=== PATIENT | male | born 1945 | race American Indian/Alaskan Native ===

== ENCOUNTER 2021-04-07 15:32 | Observation (INO) | payer MEDICARE ==
--- NOTE | 2021-04-07 10:04 | Anesthesia Consultation ---
<ELMER PYLE - Last Filed: 04/07/21 10:02> Anesthesia Consult and Med Hx Date of service: 04/07/21 - Airway Anesthetic Teeth Evaluation: Poor, Dentures ROM Head & Neck: Inadequate Mental/Hyoid Distance: Adequate Mallampati Class: Class III Intubation Access Assessment: Possibly Difficult - Pulmonary Exam CTA: Yes - Cardiac Exam Cardiac Exam: RRR - Pre-Operative Health Status ASA Pre-Surgery Classification: ASA3, ASA4 Proposed Anesthetic Plan: General - Pulmonary Hx Smoking: No Hx Sleep Apnea: No (JYOTI PRE SCREEN HIGH RISK) - Cardiovascular System Hx Hypertension: Yes - Central Nervous System Hx Back Pain: Yes (AND NECK PAIN CERVICALGIA) - Endocrine Hx End Stage Renal Disease: Yes Hx Insulin Dependent Diabetes: Yes Hx Thyroid Disease: No - Hematic Hx Anemia: No - Other Systems Hx Obesity: Yes (MORBID) - Additional Comments Anesthesia Medical History Comments: No GAC. No FHAC <AIME STUART - Last Filed: 04/07/21 12:29> Anesthesia Consult and Med Hx - Pre-Operative Health Status ASA Pre-Surgery Classification: ASA3
--- NOTE | 2021-04-07 10:04 | Anesthesia Day of Surgery ---
Anesthesia Day of Surgery - Day of Surgery Patient Examined: Yes Patient H&P Reviewed: Yes Patient is NPO: Yes Beta Blockers: No Cardiac Clearance: No Pulmonary Clearance: No Patrick's Test: N/A
[2021-04-07 10:47] LABS: Hematocrit 44.7 % (35.5-45.6); Hemoglobin 14.1 gm/dl (11.8-15.2); Mean Corpuscular HGB Conc 32 % (32-34); Mean Corpuscular Volume 84 fl (84-94); Platelet Count 156 K/mm3 (140-440); Red Blood Count 5.33 M/mm3 (3.65-5.03); Red Cell Distribution Width 15.4 % (13.2-15.2)
[2021-04-07 11:49] LABS: BUN/Creatinine Ratio 17; Blood Urea Nitrogen 20 mg/dL (9-20); Calcium 9.1 mg/dL (8.4-10.2); Hemolysis Index 5
--- NOTE | 2021-04-07 14:24 | Post Operative Note ---
Date of procedure: 04/07/21 Pre-op diagnosis: inc psa irreg prostate Post-op diagnosis: other Findings: necrotic bleeding tumor Procedure: cysto tur bt biopdies fulg Anesthesia: GETA Surgeon: KEVIN JAMA Estimated blood loss: minimal Pathology: list (prostate bladder neck) Specimen disposition: to lab Condition: stable
--- NOTE | 2021-04-07 14:58 | Fluoroscopy Report ---
FLUOROSCOPY CYSTOGRAM STATIC HISTORY: Elevated PSA and hematuria FINDINGS: 4 seconds of fluoroscopy time was provided by radiology during cystogram by urology. 3 fluo roscopic images are presented demonstrating moderate distention of the bladder with contrast agent. A Zuñiga catheter is in place. There is suggestion of a prominent prostate intervention at the bladder base. There is no evidence for extravasation or vesicoureteral reflux. Please correlate with the proc edural report as needed. Signer Name: Srinivasa Fortune Jr, MD Signed: 04/07/2021 2:54 PM Workstation Name: [id number]
--- NOTE | 2021-04-07 15:14 | Operative Report ---
DATE OF SURGERY: 04/07/2021 PREOPERATIVE DIAGNOSES: Increased prostate-specific antigen, history of previous transurethral resection of the prostate and stones. POSTOPERATIVE DIAGNOSES: Necrotic tissue throughout the prostatic urethra, left side bladder neck, looks like a mass with necrosis and bleeding and very large prostate. PROCEDURES: Cystoscopy, transurethral resection of necrotic tissue and bleeding sites and transrectal biopsies of prostate. SURGEON: Jay Munguia M.D. ANESTHESIA: General. FINDINGS: This is a gentleman with a significant mental handicap, who could not give a history. Apparently, there was an elevated PSA. He has had previous stone disease and resection of prostate about 12 years ago. He now presents for evaluation, cannot give a good history. DESCRIPTION OF PROCEDURE: The patient was brought to the operating room and placed on the operating table. Following induction of anesthesia, placed in lithotomy position, prepped and draped in usual sterile fashion. A PSA was repeated before we did any manipulation. Flexible cystoscopy showed necrosis with very irregular nodularity at the left side of the prostate extending into the bladder. Some of the tissue could be scraped as if there was a papillary necrotic bladder cancer. It was sent to pathology. It was constantly oozing. We did not plan for this, but part of it was resected and try to get control of some of the oozing. There were old clots in the bladder as well. The ultrasound was placed. We did random biopsies as well. The patient tolerated the procedure well. A 22, 3-way was placed. This patient will need further treatment. You could see on the cystogram, there is a tumor or growth of prostate extending to the left bladder neck and left side of the bladder. We will need followup radiographic studies. He is handicapped, keep a Medina drip, hopefully we will not have to rescope him and do more resection, but this look like a very necrotic irregular aggressive lesion. He was brought to recovery room in stable condition. TID: [id number] RECEIPT: [id number] MORIAH/MAYDA
[~2021-04-07 15:32] MED LIST: ACETAMINOPHEN 325 MG TAB PO PRN; DEXTROSE 50% IN WATER (25GM) 50 ML SYRINGE IV ONE; GENTAMICIN 160 MG in SODIUM CHLORIDE 0.9% 100 ML IV SCH; LACTATED RINGERS 1,000 ML IV SCH; LIDOCAINE PF 100 MG/5 ML (CARDIAC SYRINGE) IV ONE; MANNITOL/SORBITOL SOLUTION 3,000 ML IRRIG.SOLN IR ONE; ONDANSETRON 4 MG/2 ML INJ IV PRN; SODIUM CHLORIDE 0.9% IRR 1,000 ML BOTTLE IR PRN; SODIUM CHLORIDE 0.9% IRRIG SOLN 2000 ML IR ONE; WATER FOR IRRIG STERILE 1,000 ML BOTTLE ONE; WATER FOR IRRIG STERILE 2000 ML IR ONE; ZOLPIDEM 5 MG TAB PO PRN; ePHEDrine SULFATE 50 MG/1 ML INJ ONE; fentaNYL 100 MCG/2 ML INJ ONE; propofoL 200 MG/20 ML VIAL IV ONE
--- NOTE | 2021-04-07 16:03 | Post Anesthesia Evaluation ---
- Post Anesthesia Evaluation Patient Participated: Yes Airway Patent: Yes Stable Respiratory Function: Yes Nausea/Vomiting: No Temp > 96.8F: Yes Pain Manageable: Yes Adequeate Hydration: Yes Anesthesia Complications: No
[2021-04-07] MEDS ORDERED: HYDROmorphone 1 MG/1 ML INJ ONE (16:29)
[2021-04-07] MEDS: HYDROmorphone 1 MG/1 ML INJ IV PRN ×2 (16:35→16:55)
[2021-04-07 17:10] LABS: Basophils % (Auto) 0.3 % (0.0-1.8); Eosinophils % (Auto) 0.8 % (0.0-4.3); Hematocrit 43.4 % (35.5-45.6); Hemoglobin 13.9 gm/dl (11.8-15.2); Lymphocytes # (Auto) 0.9 K/mm3 (1.2-5.4); Lymphocytes % (Auto) 23.7 % (13.4-35.0); Mean Corpuscular HGB Conc 32 % (32-34); Mean Corpuscular Volume 84 fl (84-94); Monocytes # (Auto) 0.3 K/mm3 (0.0-0.8); Monocytes % (Auto) 9.2 % (0.0-7.3); Platelet Count 133 K/mm3 (140-440); Red Blood Count 5.16 M/mm3 (3.65-5.03); Red Cell Distribution Width 15.7 % (13.2-15.2)
[2021-04-07 17:18] LABS: BUN/Creatinine Ratio 15; Blood Urea Nitrogen 18 mg/dL (9-20); Hemolysis Index 20
--- NOTE | 2021-04-07 18:18 | Ultrasound Report ---
ULTRASOUND PROSTATE INDICATION / CLINICAL INFORMATION: ELEVATED PSA. TECHNIQUE: Endorectal scanning was performed. COMPARISON: None available. FINDINGS: Ultrasound guidance performed for biopsy by the referring physician. PROSTATE: No significant abnormality. PROSTATE SIZE: 7.6 x 5.7 x 6.1 cm. PROSTATE VOLUME: 138.5 ml. ADDITIONAL FINDINGS: None. IMPRESSION: 1. Enlarged prostate. Signer Name: Jaylen Gar MD Signed: 04/07/2021 6:13 PM Workstation Name: [id number]
[2021-04-07] MEDS: GENTAMICIN/NS 80 MG/100 ML 100 ML IV SCH (21:17)
[2021-04-07] MEDS: DOCUSATE SODIUM 100 MG CAP PO SCH (21:18)
[2021-04-08] MEDS: oxyCODONE /ACETAMINOPHEN 5-325MG TAB PO PRN (00:15)
[2021-04-08] MEDS: GENTAMICIN/NS 80 MG/100 ML 100 ML IV SCH ×2 (04:41→21:44)
--- NOTE | 2021-04-08 08:16 | Consultation ---
History of Present Illness - Reason for Consult Consult date: 04/07/21 Medical management Requesting physician: KEVIN JAMA - History of Present Illness 75-year-old with multiple medical problems including BPH, insulin-dependent diabetes, vitamin D deficiency, hyperlipidemia, hypertension and gout had surgery today for prostate biopsies and urinary bladder tumor evaluation and biopsies. Patient has nocturia postop. Otherwise been doing well. Patient has history of diabetes and is on Lantus. Past History Past Medical History: diabetes (IDDM), hypertension, hyperlipidemia (Noncontributory respiratory mild cough history), other ( vitamin D deficiency, BPH, gout) Past Surgical History: Other (Bladder and prostate surgery) Social history: lives with family, full code Family history: hypertension Medications and Allergies Allergies Allergy/AdvReac Type Severity Reaction Status Date / Time Penicillins AdvReac Unknown Unknown Verified 03/26/21 15:29 Home Medications Medication Instructions Recorded Confirmed Last Taken Type AtorvaSTATin [Lipitor] 10 mg PO QHS 03/26/21 04/07/21 04/06/21 19:00 History Cholecalciferol (Vitamin D3) 2,000 unit PO QDAY 03/26/21 04/07/21 04/06/21 09:00 History [Vitamin D3 2,000 UNIT CAP] Colchicine [Colcrys] 0.6 mg PO DAILY 03/26/21 04/07/21 04/06/21 09:00 [address] [facility] Senna Plus Tablet 2 tab PO HS 03/26/21 04/07/21 04/06/21 19:00 History Docusate Sodium [Colace CAP] 1 cap PO DAILY 03/26/21 04/07/21 04/06/21 09:00 History Finasteride 5 mg PO DAILY 03/26/21 04/07/21 04/06/21 09:00 History Insulin Glargine [Lantus VIAL] 20 units SQ HS 03/26/21 04/07/21 04/06/21 19:00 History Insulin Lispro [Humalog 100 0 units SQ BID 03/26/21 03/26/21 Unknown History UNITS/ML Kwikpen] Tamsulosin 0.8 mg PO HS 03/26/21 04/07/21 04/06/21 19:00 History Tylenol Extra Strength 500 mg PO TID 03/26/21 04/07/21 04/06/21 19:00 History amLODIPine [Norvasc] 10 mg PO DAILY 03/26/21 04/07/21 04/07/21 08:00 History Active Meds: Active Medications Acetaminophen (Acetaminophen 325 Mg Tab) 650 mg PO Q4H PRN PRN Reason: Pain MILD(1-3)/Fever >100.5/TELLEZ Amlodipine Besylate (Amlodipine 10 Mg Tab) 10 mg PO DAILY [facility] Atorvastatin Calcium (Atorvastatin 10 Mg Tab) 10 mg PO QHS [facility] Colchicine (Colchicine 0.6 Mg Tab) 0.6 mg PO DAILY [facility] Docusate Sodium (Docusate Sodium 100 Mg Cap) 100 mg PO BID [facility] Last Admin: 04/07/21 21:18 Dose: 100 mg Documented by: Docusate Sodium (Docusate Sodium 100 Mg Cap) mg PO DAILY [facility] Finasteride (Finasteride 5 Mg Tab) 5 mg PO DAILY [facility] Gentamicin Sulfate/Sodium Chloride (Gentamicin/Ns 80 Mg/100 Ml) 100 mls @ 200 mls/hr IV Q8H [facility]; Protocol Stop: 04/08/21 08:29 Last Admin: 04/08/21 04:41 Dose: 200 mls/hr Documented by: Insulin Glargine (Insulin Glargine 100 Units/Ml) 20 units SUB-Q HS [facility] Insulin Human Lispro (Insulin Lispro 100 Unit/Ml) 0 unit SUB-Q ACHS [facility]; Protocol Miscellaneous Medication (Cholecalciferol (Vitamin D3) [Vitamin D3 2,000 Unit Cap]) 2,000 unit PO QDAY [facility] Miscellaneous Medication (Tamsulosin) 0.8 mg PO HS [facility] Ondansetron HCl (Ondansetron 4 Mg/2 Ml Inj) 4 mg IV Q8H PRN PRN Reason: Nausea And Vomiting Oxycodone/Acetaminophen (Oxycodone /Acetaminophen 5-325mg Tab) 2 tab PO Q6H PRN PRN Reason: Pain, Moderate (4-6) Last Admin: 04/08/21 00:15 Dose: 2 tab Documented by: Sodium Chloride (Sodium Chloride 0.9% Irr 1,000 Ml Bottle) 30 ml IR Q2H PRN PRN Reason: Wound Care Sodium Chloride (Sodium Chloride 0.9% Irrig Soln 2000 Ml) 2,000 ml IR DIRECT [facility] Zolpidem Tartrate (Zolpidem 5 Mg Tab) 5 mg PO QHS PRN PRN Reason: Sleep Review of Systems All systems: negative Exam - Constitutional Vitals: Temp Pulse Resp BP Pulse Ox 98.4 F 80 16 129/63 98 04/08/21 07:19 04/08/21 07:19 04/08/21 07:19 04/08/21 07:19 04/08/21 07:19 General appearance: Present: no acute distress, well-nourished - EENT Eyes: Present: PERRL ENT: hearing intact, clear oral mucosa - Neck Neck: Present: supple, normal ROM - Respiratory Respiratory effort: normal Respiratory: bilateral: CTA - Cardiovascular Heart rate: 78 Rhythm: regular Heart Sounds: Present: S1 & S2. Absent: rub, click - Extremities Extremities: pulses symmetrical, No edema Peripheral Pulses: within normal limits - Abdominal General gastrointestinal: Present: soft, non-tender, non-distended, normal bowel sounds Male genitourinary: Present: normal - Integumentary Integumentary: Present: clear, warm, dry - Musculoskeletal Musculoskeletal: gait normal, strength equal bilaterally - Psychiatric Psychiatric: appropriate mood/affect, intact judgment & insight - Neurologic Neurologic: CNII-XII intact, moves all extremities Results - Labs CBC & Chem 7: 04/07/21 16:28 04/07/21 16:28 Labs: Abnormal lab results 04/07/21 04/07/21 04/07/21 Range/Units 10:20 10:30 16:28 WBC 3.9 L 3.6 L (4.5-11.0) K/mm3 RBC 5.33 H 5.16 H (3.65-5.03) M/mm3 MCH 27 L 27 L (28-32) pg RDW 15.4 H 15.7 H (13.2-15.2) % Plt Count 133 L (140-440) K/mm3 Hughes % (Auto) 9.2 H (0.0-7.3) % Lymph # (Auto) 0.9 L (1.2-5.4) K/mm3 Glucose (75-100) mg/dL Prostate Specific Ag 174.60 H (0.00-4.00) ng/mL 04/07/21 Range/Units 16:28 WBC (4.5-11.0) K/mm3 RBC (3.65-5.03) M/mm3 MCH (28-32) pg RDW (13.2-15.2) % Plt Count (140-440) K/mm3 Hughes % (Auto) (0.0-7.3) % Lymph # (Auto) (1.2-5.4) K/mm3 Glucose 101 H (75-100) mg/dL Prostate Specific Ag (0.00-4.00) ng/mL Short CBC 04/07/21 04/07/21 Range/Units 10:20 16:28 WBC 3.9 L 3.6 L (4.5-11.0) K/mm3 Hgb 14.1 13.9 (11.8-15.2) gm/dl Hct 44.7 43.4 (35.5-45.6) % Plt Count 156 133 L (140-440) K/mm3 BMP 04/07/21 04/07/21 10:20 16:28 Sodium 138 139 Potassium 4.1 3.9 Chloride 102.5 102.5 Carbon Dioxide 27 26 BUN 20 18 Creatinine 1.2 1.2 Glucose 79 101 H Calcium 9.1 9.0 Cystogram Prominent prostate intervention at the bladder base. There is no evidence for extravasation or vesicoureteral reflux. Transrectal US Enlarged prostate Assessment and Plan - Patient Problems (1) Status post surgery Current Visit: Yes Status: Acute Plan to address problem: Involving prostate and urinary bladder Postop doing well (2) IDDM (insulin dependent diabetes mellitus) Current Visit: Yes Status: Chronic Plan to address problem: Continue Lantus Accu-Cheks and coverage (3) BPH (benign prostatic hyperplasia) Current Visit: Yes Status: Chronic Qualifiers: Lower urinary tract symptom presence: symptoms present Plan to address problem: Continue Flomax and Proscar (4) Vitamin D deficiency Current Visit: Yes Status: Acute Plan to address problem: Continue vitamin D (5) Hyperlipidemia Current Visit: Yes Status: Chronic Plan to address problem: Continue statins (6) Hypertension Current Visit: Yes Status: Chronic Qualifiers: Hypertension type: primary hypertension Qualified Code(s): I10 - Essential (primary) hypertension Plan to address problem: Continue antihypertensives (7) DVT prophylaxis Current Visit: Yes Status: Acute Plan to address problem: On SCDs and GI prophylaxis
[2021-04-08] MEDS: DOCUSATE SODIUM 100 MG CAP PO SCH ×2 (09:17→21:57)
[2021-04-08] MEDS: amLODIPine 10 MG TAB PO SCH ×2 (09:17→09:18)
[2021-04-08] MEDS: CHOLECALCIFEROL (VIT D3) 1000 UNIT (25 mcg) TAB PO SCH (09:18)
--- NOTE | 2021-04-08 09:56 | Progress Note ---
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 Subjective Date of service: 04/08/21 Principal diagnosis: heme Objective - Constitutional Vitals: Vital Signs - 12hr 04/08/21 04/08/21 04/08/21 00:31 04:51 07:19 Temperature 98.0 F 98.3 F 98.4 F Pulse Rate 75 80 80 Respiratory 18 18 16 Rate Blood Pressure 127/67 116/58 129/63 O2 Sat by Pulse 97 97 98 Oximetry 04/08/21 09:18 Temperature Pulse Rate 80 Respiratory Rate Blood Pressure 129/63 O2 Sat by Pulse Oximetry General appearance: Present: no acute distress - Neck Neck: supple - Respiratory Respiratory effort: normal Extremities: no ischemia - Gastrointestinal General gastrointestinal: Present: soft, non-tender - Labs CBC & Chem 7: 04/07/21 16:28 04/07/21 16:28 Labs: Abnormal lab results 04/07/21 04/07/21 04/07/21 Range/Units 10:20 10:30 16:28 WBC 3.9 L 3.6 L (4.5-11.0) K/mm3 RBC 5.33 H 5.16 H (3.65-5.03) M/mm3 MCH 27 L 27 L (28-32) pg RDW 15.4 H 15.7 H (13.2-15.2) % Plt Count 133 L (140-440) K/mm3 Bee % (Auto) 9.2 H (0.0-7.3) % Lymph # (Auto) 0.9 L (1.2-5.4) K/mm3 Glucose (75-100) mg/dL Prostate Specific Ag 174.60 H (0.00-4.00) ng/mL 04/07/21 Range/Units 16:28 WBC (4.5-11.0) K/mm3 RBC (3.65-5.03) M/mm3 MCH (28-32) pg RDW (13.2-15.2) % Plt Count (140-440) K/mm3 Bee % (Auto) (0.0-7.3) % Lymph # (Auto) (1.2-5.4) K/mm3 Glucose 101 H (75-100) mg/dL Prostate Specific Ag (0.00-4.00) ng/mL Medications & Allergies - Medications Allergies/Adverse Reactions: Allergies Penicillins Adverse Reaction (Unknown, Verified 03/26/21 15:29) Unknown Home Medications: Home Medications Medication Instructions Recorded Confirmed Last Taken Type AtorvaSTATin [Lipitor] 10 mg PO QHS 03/26/21 04/07/21 04/06/21 19:00 History Cholecalciferol (Vitamin D3) 2,000 unit PO QDAY 03/26/21 04/07/21 04/06/21 09:00 History [Vitamin D3 2,000 UNIT CAP] Colchicine [Colcrys] 0.6 mg PO DAILY 03/26/21 04/07/21 04/06/21 09:00 History [facility] Senna Plus Tablet 2 tab PO HS 03/26/21 04/07/21 04/06/21 19:00 History Docusate Sodium [Colace CAP] 1 cap PO DAILY 03/26/21 04/07/21 04/06/21 09:00 History Finasteride 5 mg PO DAILY 03/26/21 04/07/21 04/06/21 09:00 History Insulin Glargine [Lantus VIAL] 20 units SQ HS 03/26/21 04/07/21 04/06/21 19:00 History Insulin Lispro [Humalog 100 0 units SQ BID 03/26/21 03/26/21 Unknown History UNITS/ML Kwikpen] Tamsulosin 0.8 mg PO HS 03/26/21 04/07/21 04/06/21 19:00 History Tylenol Extra Strength 500 mg PO TID 03/26/21 04/07/21 04/06/21 19:00 History amLODIPine [Norvasc] 10 mg PO DAILY 03/26/21 04/07/21 04/07/21 08:00 History Active Medications: Generic Name Dose Route Start Last Admin Trade Name Freq PRN Reason Stop Dose Admin Acetaminophen 650 mg 04/07/21 14:24 Acetaminophen 325 Mg Tab PO Q4H PRN Pain MILD(1-3)/Fever >100.5/TELLEZ Amlodipine Besylate 10 mg 04/08/21 10:00 04/08/21 09:18 Amlodipine 10 Mg Tab PO 10 mg DAILY [facility] Administration Atorvastatin Calcium 10 mg 04/08/21 22:00 Atorvastatin 10 Mg Tab PO QHS [facility] Cholecalciferol 2,000 unit 04/08/21 10:00 04/08/21 09:18 Cholecalciferol (Vit D3) 1000 Unit (25 Mcg) Tab PO 2,000 unit DAILY [facility] Administration Colchicine 0.6 mg 04/08/21 10:00 Colchicine 0.6 Mg Tab PO DAILY [facility] Docusate Sodium 100 mg 04/07/21 22:00 04/08/21 09:17 Docusate Sodium 100 Mg Cap PO 100 mg BID YELENA Administration Finasteride 5 mg 04/08/21 10:00 Finasteride 5 Mg Tab PO DAILY [facility] Insulin Glargine 20 units 04/08/21 22:00 Insulin Glargine 100 Units/Ml SUB-Q HS [facility] Insulin Human Lispro 0 unit 04/08/21 11:30 Insulin Lispro 100 Unit/Ml SUB-Q ACHS [facility] Protocol Ondansetron HCl 4 mg 04/07/21 14:24 Ondansetron 4 Mg/2 Ml Inj IV Q8H PRN Nausea And Vomiting Oxycodone/Acetaminophen 2 tab 04/07/21 14:24 04/08/21 00:15 Oxycodone /Acetaminophen 5-325mg Tab PO 2 tab Q6H PRN Administration Pain, Moderate (4-6) Sodium Chloride 30 ml 04/07/21 14:24 Sodium Chloride 0.9% Irr 1,000 Ml Bottle IR Q2H PRN Wound Care Sodium Chloride 2,000 ml 04/07/21 16:00 Sodium Chloride 0.9% Irrig Soln 2000 Ml IR DIRECT [facility] Tamsulosin HCl 0.8 mg 04/08/21 22:00 Tamsulosin 0.4 Mg Cap PO QHS [facility] Zolpidem Tartrate 5 mg 04/07/21 14:24 Zolpidem 5 Mg Tab PO QHS PRN Sleep
[2021-04-08] MEDS ORDERED: DOCUSATE SODIUM 100 MG CAP PO SCH (10:00)
[2021-04-08] MEDS ORDERED: NON-FORMULARY EACH (Cholecalciferol (Vitamin D3) [Vitamin D3 2,000 Unit Cap] 2,000 UNIT Ca PO SCH (10:00)
[2021-04-08] MEDS: SODIUM CHLORIDE 0.9% IRRIG SOLN 2000 ML IR SCH ×8 (11:00→22:50)
[2021-04-08] MEDS: INSULIN LISPRO 100 UNIT/ML SUB-Q SCH ×3 (11:30→22:01)
--- NOTE | 2021-04-08 12:43 | Post Anesthesia Evaluation ---
- Post Anesthesia Evaluation Patient Participated: Yes Airway Patent: Yes Stable Respiratory Function: Yes Nausea/Vomiting: No Temp > 96.8F: Yes Pain Manageable: Yes Adequeate Hydration: Yes Anesthesia Complications: No Block Receding Appropriately: Not Applicable Patient on Ventilator: No
--- NOTE | 2021-04-08 14:09 | Cat Scan Report ---
CT ABDOMEN AND PELVIS WITH AND WITHOUT CONTRAST HISTORY: ABDPEL WITHOUT/WITH tumor omni 300 100ml COMPARISON: None. TECHNIQUE: Axial CT images were obtained through the abdomen and pelvis after 100 cc of IV contrast. Sagittal and coronal reformatted images. All CT scans at this location are performed using CT dose re duction for ALARA by means of automated exposure control. FINDINGS: CT ABDOMEN: Lung Bases: Clear. Liver: There is mild hepatic steatosis. No enlargement or focal liver lesion. Biliary: Multiple tiny gallstones are noted in the gallbladder. No biliary dilatation or inflammation . Spleen: No significant abnormality. Unenlarged. Pancreas: The pancreas is mildly atrophic. A 1.5 cm simple appearing cyst is identified in the pancre atic neck. No inflammatory changes. Adrenals: No significant abnormality. Kidneys: No significant abnormality. Lymphatics: A solitary mildly enlarged right external iliac lymph node is identified measuring 1.6 cm in short axis. No other adenopathy is detected. Vasculature: No significant abnormality. IVC filter is in place in the infrarenal IVC. Bowel/Peritoneum: No significant abnormality. No free air. No free fluid. Normal appendix. CT PELVIS: : The prostate gland is enlarged with indistinct borders measuring up to 6.7 cm in diameter. The bl adder is decompressed with a Zuñiga catheter and poorly evaluated. There appears to be moderate thicke peewee of the left lateral bladder wall measuring up to 2.2 cm in thickness. This appears to represent extension of the prostate mass. Osseous Structures: The bony structures are intact with mild degenerative changes in the thoracolumba r spine. No suspicious bony lesion is detected on CTA. Advanced degenerative changes at the left hip are noted. Additional Findings: None IMPRESSION: Enlarged prostate gland measuring 6.7 cm. The bladder is collapsed with a Zuñiga catheter but there is suggestion of moderate left lateral bladder wall thickening which may represent extension of the pro state mass. There is also a 1.6 cm right external iliac lymph node suspicious for metastatic disease. Mild hepatic steatosis. Cholelithiasis. Pancreatic cyst. No evidence for bony lesion. Signer Name: Srinivasa Fortune Jr, MD Signed: 04/08/2021 2:05 PM Workstation Name: [id number]
[2021-04-08] MEDS: FINASTERIDE 5 MG TAB PO SCH (17:36)
[2021-04-08] MEDS: COLCHICINE 0.6 MG TAB PO SCH (17:36)
[2021-04-08] MEDS ORDERED: TAMSULOSIN PO SCH (22:00)
[2021-04-08] MEDS ORDERED: TAMSULOSIN 0.4 MG CAP PO SCH (22:00)
[2021-04-08] MEDS ORDERED: INSULIN GLARGINE 100 UNITS/ML SUB-Q SCH (22:00)
[2021-04-09] MEDS: SODIUM CHLORIDE 0.9% IRRIG SOLN 2000 ML IR SCH ×4 (00:49→11:48)
[2021-04-09] MEDS: INSULIN LISPRO 100 UNIT/ML SUB-Q SCH ×3 (08:30→17:52)
[2021-04-09] MEDS: DOCUSATE SODIUM 100 MG CAP PO SCH (09:04)
[2021-04-09] MEDS: COLCHICINE 0.6 MG TAB PO SCH (09:04)
[2021-04-09] MEDS: oxyCODONE /ACETAMINOPHEN 5-325MG TAB PO PRN (09:04)
[2021-04-09] MEDS: CHOLECALCIFEROL (VIT D3) 1000 UNIT (25 mcg) TAB PO SCH (09:05)
[2021-04-09] MEDS: FINASTERIDE 5 MG TAB PO SCH (09:05)
[2021-04-09] MEDS: amLODIPine 10 MG TAB PO SCH (09:05)
--- NOTE | 2021-04-09 12:43 | Progress Note ---
Assessment and Plan urine cleart mass left side may need staged resection may need embolization spoke with [facility] today with cath Subjective Date of service: 04/09/21 Principal diagnosis: heme Objective - Constitutional Vitals: Vital Signs - 12hr 04/09/21 04/09/21 04/09/21 04:06 04:21 07:12 Temperature 98.5 F 98.8 F Pulse Rate 87 87 Respiratory 16 16 18 Rate Blood Pressure 123/59 121/59 O2 Sat by Pulse 96 95 94 Oximetry 04/09/21 04/09/21 04/09/21 10:04 11:06 11:11 Temperature 98.6 F Pulse Rate 83 Respiratory 18 18 Rate Blood Pressure 121/67 O2 Sat by Pulse 98 93 Oximetry General appearance: Present: no acute distress Extremities: no ischemia - Gastrointestinal General gastrointestinal: Present: soft, non-tender - Labs CBC & Chem 7: 04/07/21 16:28 04/07/21 16:28 Labs: Abnormal lab results 04/08/21 04/08/21 04/09/21 Range/Units 16:20 20:51 07:12 POC Glucose 148 H 213 H 173 H (70-105) mg/dL 04/09/21 Range/Units 11:11 POC Glucose 140 H (70-105) mg/dL Medications & Allergies - Medications Allergies/Adverse Reactions: Allergies Penicillins Adverse Reaction (Unknown, Verified 03/26/21 15:29) Unknown Home Medications: Home Medications Medication Instructions Recorded Confirmed Last Taken Type AtorvaSTATin [Lipitor] 10 mg PO QHS 03/26/21 04/07/21 04/06/21 19:00 History Cholecalciferol (Vitamin D3) 2,000 unit PO QDAY 03/26/21 04/07/21 04/06/21 09:00 History [Vitamin D3 2,000 UNIT CAP] Colchicine [Colcrys] 0.6 mg PO DAILY 03/26/21 04/07/21 04/06/21 09:00 [address] [facility] Senna Plus Tablet 2 tab PO HS 03/26/21 04/07/21 04/06/21 19:00 History Docusate Sodium [Colace CAP] 1 cap PO DAILY 03/26/21 04/07/21 04/06/21 09:00 History Finasteride 5 mg PO DAILY 03/26/21 04/07/21 04/06/21 09:00 History Insulin Glargine [Lantus VIAL] 20 units SQ HS 03/26/21 04/07/21 04/06/21 19:00 History Insulin Lispro [Humalog 100 0 units SQ BID 03/26/21 03/26/21 Unknown History UNITS/ML Kwikpen] Tamsulosin 0.8 mg PO HS 03/26/21 04/07/21 04/06/21 19:00 History Tylenol Extra Strength 500 mg PO TID 03/26/21 04/07/21 04/06/21 19:00 History amLODIPine [Norvasc] 10 mg PO DAILY 03/26/21 04/07/21 04/07/21 08:00 History Active Medications: Generic Name Dose Route Start Last Admin Trade Name Freq PRN Reason Stop Dose Admin Acetaminophen 650 mg 04/07/21 14:24 Acetaminophen 325 Mg Tab PO Q4H PRN Pain MILD(1-3)/Fever >100.5/TELLEZ Amlodipine Besylate 10 mg 04/08/21 10:00 04/09/21 09:05 Amlodipine 10 Mg Tab PO 10 mg DAILY [facility] Administration Atorvastatin Calcium 10 mg 04/08/21 22:00 04/08/21 21:57 Atorvastatin 10 Mg Tab PO 10 mg QHS [facility] Administration Cholecalciferol 2,000 unit 04/08/21 10:00 04/09/21 09:05 Cholecalciferol (Vit D3) 1000 Unit (25 Mcg) Tab PO 2,000 unit DAILY [facility] Administration Colchicine 0.6 mg 04/08/21 10:00 04/09/21 09:04 Colchicine 0.6 Mg Tab PO 0.6 mg DAILY [facility] Administration Docusate Sodium 100 mg 04/07/21 22:00 04/09/21 09:04 Docusate Sodium 100 Mg Cap PO 100 mg BID [facility] Administration Finasteride 5 mg 04/08/21 10:00 04/09/21 09:05 Finasteride 5 Mg Tab PO 5 mg DAILY [facility] Administration Insulin Glargine 20 units 04/08/21 22:00 04/08/21 21:59 Insulin Glargine 100 Units/Ml SUB-Q 20 units HS [facility] Administration Insulin Human Lispro 0 unit 04/08/21 11:30 04/09/21 11:14 Insulin Lispro 100 Unit/Ml SUB-Q Not Given ACHS [facility] Protocol Ondansetron HCl 4 mg 04/07/21 14:24 Ondansetron 4 Mg/2 Ml Inj IV Q8H PRN Nausea And Vomiting Oxycodone/Acetaminophen 2 tab 04/07/21 14:24 04/09/21 09:04 Oxycodone /Acetaminophen 5-325mg Tab PO 2 tab Q6H PRN Administration Pain, Moderate (4-6) Sodium Chloride 30 ml 04/07/21 14:24 Sodium Chloride 0.9% Irr 1,000 Ml Bottle IR Q2H PRN Wound Care Sodium Chloride 2,000 ml 04/07/21 16:00 04/09/21 11:48 Sodium Chloride 0.9% Irrig Soln 2000 Ml IR 2,000 ml DIRECT [facility] Administration Tamsulosin HCl 0.8 mg 04/08/21 22:00 04/08/21 21:57 Tamsulosin 0.4 Mg Cap PO 0.8 mg QHS [facility] Administration Zolpidem Tartrate 5 mg 04/07/21 14:24 Zolpidem 5 Mg Tab PO QHS PRN Sleep
--- NOTE | 2021-04-09 12:44 | Discharge Summary ---
Short Stay Discharge Plan Activity: other (no straining ) Weight Bearing Status: Partial Weight Bearing Diet: low fat, low cholesterol, low salt Durable Medical Equipment Needed Upon Discharge: other (giang x 5 days ) Follow up with: CECIL SANTOS SR, MD [Primary Care Provider] - 7 Days
--- NOTE | 2021-04-09 14:32 | Progress Note ---
Assessment and Plan Assessment and plan: --Necrotic bleeding tumor of the prostate Current Visit: Yes Status: Acute s/p Cystoscopy transurethral resection of necrotic tissue transrectal biopsies of prostate transrectal biopsies of the prostate Urology following -- IDDM (insulin dependent diabetes mellitus) Current Visit: Yes Status: Chronic Continue Lantus Accu-Cheks and coverage --BPH (benign prostatic hyperplasia) Current Visit: Yes Status: Chronic Continue Flomax and Proscar -- Vitamin D deficiency Current Visit: Yes Status: Acute Continue vitamin D -- Hyperlipidemia Current Visit: Yes Status: Chronic Continue statins -- Hypertension Current Visit: Yes Status: Chronic Continue antihypertensives -- DVT prophylaxis Current Visit: Yes Status: Acute On SCDs and GI prophylaxis. Urology cleared for discharge Patient needs to follow-up with primary care physician for his medical needs Medically stable for discharge Thank you for this consultation We will sign off call us with questions History Interval history: I have seen and examined the patient at the bedside Patient's chart and medications reviewed Patient is lethargic sleepy No new complaints Vital signs noted Hospitalist Physical - Constitutional Vitals: Temp Pulse Resp BP Pulse Ox 98.6 F 83 18 121/67 93 04/09/21 11:11 04/09/21 11:11 04/09/21 11:11 04/09/21 11:11 04/09/21 11:11 General appearance: Present: no acute distress, well-nourished, obese - EENT Eyes: Present: PERRL, EOM intact - Neck Neck: Present: supple, normal ROM - Respiratory Respiratory effort: normal Respiratory: bilateral: diminished, negative: rales, rhonchi, wheezing - Cardiovascular Rhythm: regular Heart Sounds: Present: S1 & S2 - Extremities Extremities: no ischemia, No edema - Abdominal General gastrointestinal: soft, non-tender, non-distended, normal bowel sounds - Integumentary Integumentary: Present: clear, warm - Psychiatric Psychiatric: appropriate mood/affect, other (Minimally communicative) - Neurologic Neurologic: moves all extremities Results - Labs CBC & Chem 7: 04/07/21 16:28 04/07/21 16:28 Labs: Laboratory Last Values WBC 3.6 K/mm3 (4.5-11.0) L 04/07/21 16:28 RBC 5.16 M/mm3 (3.65-5.03) H 04/07/21 16: Hgb 13.9 gm/dl (11.8-15.2) 04/07/21: Hct 43.4 % (35.5-45.6) 04/07/21: MCV 84 fl (84-94) 04/07/21: MCH 27 pg (28-32) L 04/07/21: MCHC 32 % (32-34) 04/07/21: RDW 15.7 % (13.2-15.2) H 04/07/21: Plt Count 133 K/mm3 (140-440) L 04/07/21: Lymph % (Auto) 23.7 % (13.4-35.0) 04/07/21 Cuming % (Auto) 9.2 % (0.0-7.3) H 04/07/21: Eos % (Auto) 0.8 % (0.0-4.3) 04/07/21 Baso % (Auto) 0.3 % (0.0-1.8) 04/07/21 Lymph # (Auto) 0.9 K/mm3 (1.2-5.4) L 04/07/21: Cuming # (Auto) 0.3 K/mm3 (0.0-0.8) 04/07/21 Eos # (Auto) 0.0 K/mm3 (0.0-0.4) 04/07/21 Baso # (Auto) 0.0 K/mm3 (0.0-0.1) 04/07/21: Seg Neutrophils % 66.0 % (40.0-70.0) 04/07/21: Seg Neutrophils # 2.4 K/mm3 (1.8-7.7) 04/07/21: Sodium 139 mmol/L (137-145) 04/07/21: Potassium 3.9 mmol/L (3.6-5.0) 04/07/21: Chloride 102.5 mmol/L (98-107) 04/07/21: Carbon Dioxide 26 mmol/L (22-30) 08/16/21 16:28 Anion Gap 14 mmol/L 04/07/21 16:28 BUN 18 mg/dL (9-20) 04/07/21 16:28 Creatinine 1.2 mg/dL (0.8-1.3) 04/07/21 16:28 Estimated GFR > 60 ml/min 04/07/21 16:28 BUN/Creatinine Ratio 15 % 04/07/21 16:28 Glucose 101 mg/dL (75-100) H 04/07/21 16:28 POC Glucose 140 mg/dL (70-105) H 04/09/21 11:11 Calcium 9.0 mg/dL (8.4-10.2) 04/07/21 16:28 Prostate Specific Ag 174.60 ng/mL (0.00-4.00) H 04/07/21 10:30 Coronavirus (PCR) Negative (Negative) 04/09/21 Unknown Zuñiga/IV: Voiding Method Indwelling Catheter Active Medications - Current Medications Current Medications: Generic Name Dose Route Start Last Admin Trade Name Freq PRN Reason Stop Dose Admin Acetaminophen 650 mg 04/07/21 14:24 Acetaminophen 325 Mg Tab PO Q4H PRN Pain MILD(1-3)/Fever >100.5/TELLEZ Amlodipine Besylate 10 mg 04/08/21 10:00 04/09/21 09:05 Amlodipine 10 Mg Tab PO 10 mg DAILY YELENA Administration Atorvastatin Calcium 10 mg 04/08/21 22:00 04/08/21 21:57 Atorvastatin 10 Mg Tab PO 10 mg QHS YELENA Administration Cholecalciferol 2,000 unit 04/08/21 10:00 04/09/21 09:05 Cholecalciferol (Vit D3) 1000 Unit (25 Mcg) Tab PO 2,000 unit DAILY YELENA Administration Colchicine 0.6 mg 04/08/21 10:00 04/09/21 09:04 Colchicine 0.6 Mg Tab PO 0.6 mg DAILY YELENA Administration Docusate Sodium 100 mg 04/07/21 22:00 04/09/21 09:04 Docusate Sodium 100 Mg Cap PO 100 mg BID YELENA Administration Finasteride 5 mg 04/08/21 10:00 04/09/21 09:05 Finasteride 5 Mg Tab PO 5 mg DAILY YELENA Administration Insulin Glargine 20 units 04/08/21 22:00 04/08/21 21:59 Insulin Glargine 100 Units/Ml SUB-Q 20 units HS YELENA Administration Insulin Human Lispro 0 unit 04/08/21 11:30 04/09/21 11:14 Insulin Lispro 100 Unit/Ml SUB-Q Not Given ACHS [facility] Protocol Ondansetron HCl 4 mg 04/07/21 14:24 Ondansetron 4 Mg/2 Ml Inj IV Q8H PRN Nausea And Vomiting Oxycodone/Acetaminophen 2 tab 04/07/21 14:24 04/09/21 09:04 Oxycodone /Acetaminophen 5-325mg Tab PO 2 tab Q6H PRN Administration Pain, Moderate (4-6) Sodium Chloride 30 ml 04/07/21 14:24 Sodium Chloride 0.9% Irr 1,000 Ml Bottle IR Q2H PRN Wound Care Sodium Chloride 2,000 ml 04/07/21 16:00 04/09/21 11:48 Sodium Chloride 0.9% Irrig Soln 2000 Ml IR 2,000 ml DIRECT YELENA Administration Tamsulosin HCl 0.8 mg 04/08/21 22:00 04/08/21 21:57 Tamsulosin 0.4 Mg Cap PO 0.8 mg QHS YELENA Administration Zolpidem Tartrate 5 mg 04/07/21 14:24 Zolpidem 5 Mg Tab PO QHS PRN Sleep
[2021-04-09 15:59] VITALS: BP 128/72
== END 2021-04-09 18:55 ==
LOC: OR 15:32 → 3A 15:33 → 3B-SURG 20:20
PROVIDERS: ADMIT Urology; ATTEND Urology
DX: N40.2 Nodular prostate without lower urinary tract symptoms (principal); Z20.822 Contact with and (suspected) exposure to COVID-19; N40.0 Benign prostatic hyperplasia without lower urinary tract symptoms; R31.0 Gross hematuria; N39.0 Urinary tract infection, site not specified; E55.9 Vitamin D deficiency, unspecified; I10 Essential (primary) hypertension; E78.5 Hyperlipidemia, unspecified; E11.9 Type 2 diabetes mellitus without complications; Z87.442 Personal history of urinary calculi; Z79.899 Other long term (current) drug therapy; Z98.890 Other specified postprocedural states; Z79.4 Long term (current) use of insulin
CPT/HCPCS: 36415; 52214; 74178; 74430; 76872; 80048; 82962; 84153; 85025; 85027; 88305; 88307; 96365; 96366; 96372; 96375; A4217; A9270; C1758; G0378; J1170; J1580; J1956; J2001; J2704; J3010; J7120; Q9967; U0003; 88341; 88342; J1815

== ENCOUNTER 2021-05-08 09:45 | Outpatient (CLI) | payer MEDICARE ==
--- NOTE | 2021-05-08 11:57 | Cat Scan Report ---
CT ABDOMEN AND PELVIS WITHOUT CONTRAST INDICATION / CLINICAL INFORMATION: PROSTATE CANCER. TECHNIQUE: Axial CT images were obtained through the abdomen and pelvis without IV contrast. All CT scans at this location are performed using CT dose reduction for ALARA by means of automated exposure control. COMPARISON: 04/08/2021 FINDINGS: LOWER CHEST: No significant abnormality. AORTA / ARTERIES: Mild atherosclerotic calcification without acute abnormality. IVC / VEINS: There is an infrarenal IVC filter. LYMPH NODES: The right external iliac lymph nodes appear unchanged compared to previous CT. COLON: No significant abnormality. APPENDIX: No significant abnormality. STOMACH / SMALL BOWEL: No significant abnormality. PERITONEUM: No free fluid. No free air. No fluid collection. LIVER: No significant abnormality. GALLBLADDER: Cholelithiasis. BILE DUCTS: No significant abnormality. PANCREAS: Fatty atrophy with unchanged fluid attenuating lesion SPLEEN: No significant abnormality. ADRENALS: No significant abnormality. RIGHT KIDNEY / URETER: Redemonstrated nonobstructing stones. LEFT KIDNEY / URETER: Mild hydronephrosis and mild hydroureter without clearly identified etiology. URINARY BLADDER: There is a Zuñiga catheter within the urinary bladder. REPRODUCTIVE ORGANS: Prostate is enlarged. SKELETAL SYSTEM: Scattered degeneration. No concerning lytic or blastic osseous lesion. ADDITIONAL FINDINGS: None. IMPRESSION: 1. Mild left hydronephrosis and hydroureter of unknown etiology. 2. Otherwise no significant change from prior CT. IVC Filter Recommendation: IVC filters should be removed if possible when they are no longer clinical ly necessary. (1) Refer to the established IVC filter management plan; (2) If there is no established plan for the patient's IVC filter, consider referral to interventional/vascular clinician on a nonem ergent basis for evaluation. Signer Name: Rico Amato DO Signed: 05/08/2021 11:53 AM Workstation Name: [id number]
--- NOTE | 2021-05-08 14:13 | Nuclear Medicine Report ---
NUCLEAR MEDICINE BONE SCAN, WHOLE BODY INDICATION / CLINICAL INFORMATION: PROSTATE CA C61. TECHNIQUE: 25.0 mCi of Tc-99m MDP were injected IV. Images were obtained of the whole body. COMPARISON: No relevant prior imaging study available. FINDINGS: ARTICULAR STRUCTURES: Mild, relatively symmetric, periarticular activity which is likely degenerative . SKELETAL LESIONS: Scattered foci of abnormal uptake are seen in the right proximal femur, left ischiu m, and in the left posterior third rib as well as possibly in the sternum. SOFT TISSUES: Normal. KIDNEYS: Left-sided hydroureteronephrosis noted. ADDITIONAL FINDINGS: None. IMPRESSION: 1. Multiple foci of abnormal uptake in the pelvis and ribs are concerning for possible osseous metast atic disease. 2. There is left-sided hydroureteronephrosis. Signer Name: Den Rincon MD Signed: 05/08/2021 2:09 PM Workstation Name: [id number]
== END 2021-05-08 09:46 | disposition home or self-care (01) ==
LOC: NM 09:45
PROVIDERS: ATTEND Urology
DX: C61 Malignant neoplasm of prostate (principal); N13.30 Unspecified hydronephrosis
CPT/HCPCS: 74176; 78306; A9503

== ENCOUNTER 2021-05-30 09:21 | Outpatient (CLI) | payer MEDICARE ==
[2021-05-30] MEDS ORDERED: FUROSEMIDE 20 MG/2 ML INJ ONE (10:14)
[2021-05-30] MEDS ORDERED: FUROSEMIDE 20 MG/2 ML INJ IV NR (11:30)
--- NOTE | 2021-05-30 13:11 | Nuclear Medicine Report ---
NM renal scan captopril/lasix INDICATION / CLINICAL INFORMATION: PROSTATE CANCER. TRACER: Technetium 99m MAG3 5.5 mCi IV injection. COMPARISON: CT abdomen and pelvis same day. FINDINGS: Following injection of the above tracer, time to peak on the right is 5 minutes. Time to peak on the left is 9 minutes. Split renal function is 75% on the right and 25% on the left. ERPF is 120 mL/m on the right versus 39 mg/m on the left. Evaluation of renal curves demonstrate and appropriate peak on the right with gradual washout. There is lower function on the left with washout following the administration of tracer retention. No obstr uctive curve is present. IMPRESSION: 1. Abnormal renal function bilaterally left greater than right. 2. Tracer retention on the left with washout following Lasix administration. Signer Name: Geovany Lewis MD Signed: 05/30/2021 1:06 PM Workstation Name: [id number]
--- NOTE | 2021-05-30 13:14 | Cat Scan Report ---
CT ABDOMEN AND PELVIS WITHOUT CONTRAST INDICATION: PROSTATE CANCER CONTRAST: Without IV COMPARISON: 05/08/2021, 04/08/[address] scans at this location are performed using CT dose reduction for ALARA by means of automated e xposure control. FINDINGS: No significant focal bony lesions are seen. Prominent left and moderate right hip degenerat seng changes are noted. Lung bases show mild chronic changes but no acute infiltrates. Nodularity yarely g the lateral aspect of the major fissure on the left is unchanged as is a tiny peripheral density ju st superior to this level in the lateral aspect of the left lower lobe. More inferiorly a small nodul e posterior laterally in the left lower lobe measuring just over 2 mm appears to be new. Nodularity i n the right middle lobe is unchanged. Coronary artery calcifications are moderately prominent. Inferior vena cava filter appears unchanged. No lymphadenopathy is seen in the abdomen or pelvis. No free fluid is noted. No evidence of bowel obstruction is noted. Mild evidence of constipation is note d. Gallstones are again seen without obvious acute change. No biliary dilatation is noted. Mild fatty infiltration of the pancreas is again seen. I see no abnormalities of the liver, spleen, or adrenals . No inflammatory changes are seen. Right nephrolithiasis is again seen without obstructive change. Atrophic changes are again noted in t he left kidney. Left renal collecting system prominence has increased mildly and the left ureter cont inues to show diffuse mild prominence. No ureteral calculi are seen. Urinary bladder is poorly disten ded making evaluation difficult though there is a suggestion of diffuse wall thickening. Air in the b ladder probably is iatrogenic. Prostate is moderately enlarged though similar to prior study. There p robably has been been a TURP. Seminal vesicles are not enlarged. No pelvic masses are seen. Appendix appears within normal limits. IMPRESSION: 1. Though most bilateral basilar nodularity is stable, there appears to be a small new nodule in the left lower lobe. I would recommend follow-up given this change. 2. Cholelithiasis without acute change seen 3. Mild increase in the previously noted left hydronephrosis with continued diffuse prominence of the left ureter. I do not see a obvious source of obstruction. However, the bladder wall now appears dif fusely thickened. 4. Continued mild prostatomegaly 5. Mild right nephrolithiasis without acute change seen 6. Evidence of mild constipation IVC Filter Recommendation: IVC filters should be removed if possible when they are no longer clinical ly necessary. (1) Refer to the established IVC filter management plan; (2) If there is no established plan for the patient's IVC filter, consider referral to interventional/vascular clinician on a nonem ergent basis for evaluation. Signer Name: Jose Howard MD Signed: 05/30/2021 1:10 PM Workstation Name: [id number]
== END 2021-05-30 09:22 | disposition home or self-care (01) ==
LOC: NM 09:21
PROVIDERS: ATTEND Urology
DX: C61 Malignant neoplasm of prostate (principal); M16.12 Unilateral primary osteoarthritis, left hip; I25.10 Atherosclerotic heart disease of native coronary artery without angina pectoris; K76.0 Fatty (change of) liver, not elsewhere classified; K59.00 Constipation, unspecified; N20.0 Calculus of kidney; N26.1 Atrophy of kidney (terminal); N40.0 Benign prostatic hyperplasia without lower urinary tract symptoms
CPT/HCPCS: 74176; 78708; A9562; J1940

== ENCOUNTER 2021-11-05 17:52 | Emergency (ER) | payer MEDICARE ==
--- NOTE | 2021-11-05 18:42 | Emergency Department Report ---
ED Altered Mental Status HPI - General Chief Complaint: Altered Mental Status Stated Complaint: AMS Time Seen by Provider: 11/05/21 18:01 Source: patient, EMS, old records reviewed Mode of arrival: Stretcher Limitations: Altered Mental Status - History of Present Illness Initial Comments: 76-year-old male with a past medical history of dementia, diabetes, hyperlipidemia, hypertension, BPH, CKD, and CHF presents to the hospital after a fall at the group home with reported alteration mental status. History obtained from EMS due to patient significant dementia. Patient is oriented to self only and does not recall the year, place, or while he is here today. EMS reports that patient has a low lying bed without side rails and was found by staff on the floor. He has a new nurse who is not familiar with patient's baseline mental status and she reported concerns about patient's confusion and level of responsiveness. EMS reports that patient has been responsive since their initial contact. Patient just complains that he overall just does not feel well. Blood glucose as per EMS 236 Patient apparently has a history of DVT as per group home paperwork it does not appear that patient is on anticoagulation as per patient is MAR from group home. - Related Data Home Medications Medication Instructions Recorded Confirmed Last Taken AtorvaSTATin [Lipitor] 10 mg PO QHS 03/26/21 04/07/21 04/06/21 19:00 Cholecalciferol (Vitamin D3) 2,000 unit PO QDAY 03/26/21 04/07/21 04/06/21 09:00 [Vitamin D3 2,000 UNIT CAP] Colchicine [Colcrys] 0.6 mg PO DAILY 03/26/21 04/07/21 04/06/21 09:00 [facility] Senna Plus Tablet 2 tab PO HS 03/26/21 04/07/21 04/06/21 19:00 Docusate Sodium [Colace CAP] 1 cap PO DAILY 03/26/21 04/07/21 04/06/21 09:00 Finasteride 5 mg PO DAILY 03/26/21 04/07/21 04/06/21 09:00 Insulin Glargine [Lantus VIAL] 20 units SQ HS 03/26/21 04/07/21 04/06/21 19:00 Insulin Lispro [Humalog 100 0 units SQ BID 03/26/21 03/26/21 Unknown UNITS/ML Kwikpen] Tamsulosin 0.8 mg PO HS 03/26/21 04/07/21 04/06/21 19:00 Tylenol Extra Strength 500 mg PO TID 03/26/21 04/07/21 04/06/21 19:00 amLODIPine [Norvasc] 10 mg PO DAILY 03/26/21 04/07/21 04/07/21 08:00 Previous Rx's Medication Instructions Recorded Last Taken Type Nitrofurantoin Bradley/M-Cryst 100 mg PO Q12HR #14 capsule 11/06/21 Unknown Rx [Macrobid CAP] Allergies Allergy/AdvReac Type Severity Reaction Status Date / Time Penicillins AdvReac Unknown Unknown Verified 11/05/21 17:54 ED Review of Systems ROS: Stated complaint: AMS Other details as noted in HPI Comment: Unobtainable due to pts medical conditions ED Past Medical Hx - Past Medical History Hx Hypertension: Yes Hx Congestive Heart Failure: Yes Hx Diabetes: Yes Hx Deep Vein Thrombosis: Yes (DOMINIC LEGS) Hx Arthritis: Yes Hx Dementia: Yes - Social History Smoking Status: Never Smoker - Medications Home Medications: Home Medications Medication Instructions Recorded Confirmed Last Taken Type AtorvaSTATin [Lipitor] 10 mg PO QHS 03/26/21 04/07/21 04/06/21 19:00 History Cholecalciferol (Vitamin D3) 2,000 unit PO QDAY 03/26/21 04/07/21 04/06/21 09:00 History [Vitamin D3 2,000 UNIT CAP] Colchicine [Colcrys] 0.6 mg PO DAILY 03/26/21 04/07/21 04/06/21 09:00 History [facility] Senna Plus Tablet 2 tab PO HS 03/26/21 04/07/21 04/06/21 19:00 History Docusate Sodium [Colace CAP] 1 cap PO DAILY 03/26/21 04/07/21 04/06/21 09:00 History Finasteride 5 mg PO DAILY 03/26/21 04/07/21 04/06/21 09:00 History Insulin Glargine [Lantus VIAL] 20 units SQ HS 03/26/21 04/07/21 04/06/21 19:00 History Insulin Lispro [Humalog 100 0 units SQ BID 03/26/21 03/26/21 Unknown History UNITS/ML Kwikpen] Tamsulosin 0.8 mg PO HS 03/26/21 04/07/21 04/06/21 19:00 History Tylenol Extra Strength 500 mg PO TID 03/26/21 04/07/21 04/06/21 19:00 History amLODIPine [Norvasc] 10 mg PO DAILY 03/26/21 04/07/21 04/07/21 08:00 History Nitrofurantoin Bradley/M-Cryst 100 mg PO Q12HR #14 capsule 11/06/21 Unknown Rx [Macrobid CAP] ED Physical Exam - General Limitations: Altered Mental Status - Other Other exam information: General: No acute distress Head: Atraumatic Eyes: normal appearance ENT: Moist mucous membranes Neck: Normal appearance, no midline tenderness Chest: Clear to auscultation bilaterally CV: Regular rate and rhythm Abdomen: Soft, normal bowel sounds, nontender, nondistended, no rebound or guarding Back: Normal inspection Extremity: Normal inspection, full range of motion Neuro: Alert O x 1, no facial asymmetry, speech clear, equal handgrip and foot dorsiflexion Psych: Appropriate behavior Skin: No rash ED Course Vital Signs 11/05/21 11/05/21 11/05/21 17:53 19:28 19:30 Temperature Pulse Rate 106 H Respiratory Rate Blood Pressure 148/72 Blood Pressure 157/90 [Left] O2 Sat by Pulse 99 98 98 Oximetry 11/05/21 11/05/21 11/05/21 19:32 19:46 20:00 Temperature 97.5 F L Pulse Rate 78 Respiratory 16 14 19 Rate Blood Pressure 152/79 161/75 Blood Pressure 148/72 [Left] O2 Sat by Pulse 99 99 96 Oximetry 11/05/21 11/05/21 11/05/21 20:30 20:46 21:00 Temperature Pulse Rate 80 91 H Respiratory 16 18 14 Rate Blood Pressure 130/69 114/75 Blood Pressure [Left] O2 Sat by Pulse 98 97 91 Oximetry 11/05/21 11/05/21 11/05/21 21:16 21:30 21:46 Temperature Pulse Rate 74 73 70 Respiratory 28 H 16 17 Rate Blood Pressure 114/75 145/60 145/60 Blood Pressure [Left] O2 Sat by Pulse 98 97 97 Oximetry 11/05/21 11/05/21 11/05/21 22:00 22:16 22:30 Temperature Pulse Rate 72 Respiratory 14 Rate Blood Pressure 142/55 142/55 145/64 Blood Pressure [Left] O2 Sat by Pulse 98 97 97 Oximetry 11/05/21 11/05/21 11/05/21 22:46 23:00 23:16 Temperature Pulse Rate 75 77 Respiratory 14 18 Rate Blood Pressure 145/64 146/56 146/56 Blood Pressure [Left] O2 Sat by Pulse 96 98 96 Oximetry 11/05/21 11/05/21 23:30 23:46 Temperature Pulse Rate 72 77 Respiratory 17 14 Rate Blood Pressure 140/53 140/53 Blood Pressure [Left] O2 Sat by Pulse 96 95 Oximetry - Lab Data Result diagrams: 11/05/21 19:44 11/05/21 18:50 Lab Results 11/05/21 11/05/21 11/05/21 Range/Units 18:50 18:50 18:50 WBC (4.5-11.0) K/mm3 RBC (3.65-5.03) M/mm3 Hgb (11.8-15.2) gm/dl Hct (35.5-45.6) % MCV (84-94) fl MCH (28-32) pg MCHC (32-34) % RDW (13.2-15.2) % Plt Count (140-440) K/mm3 Lymph % (Auto) Bradley % (Auto) Eos % (Auto) Baso % (Auto) Lymph # (Auto) Bradley # (Auto) Eos # (Auto) Baso # (Auto) Seg Neutrophils % Seg Neutrophils # PT (12.2-14.9) Sec. INR (0.87-1.13) APTT (24.2-36.6) Sec. Sodium 140 (137-145) mmol/L Carbon Dioxide 23 (22-30) mmol/L BUN 15 (9-20) mg/dL Creatinine 1.2 (0.8-1.3) mg/dL Estimated GFR > 60 ml/min BUN/Creatinine Ratio 13 % Glucose 207 H (75-100) mg/dL Calcium 8.9 (8.4-10.2) mg/dL Total Bilirubin 0.20 (0.1-1.2) mg/dL AST 11 (5-40) units/L ALT 9 (7-56) units/L Alkaline Phosphatase 95 (35-129) units/L Ammonia 33.0 (25-60) umol/L Total Creatine Kinase 57 (55-170) units/L Total Protein 7.1 (6.3-8.2) g/dL Albumin 3.9 (3.9-5) g/dL Albumin/Globulin Ratio 1.2 % TSH 2.240 (0.270-4.200) mlU/mL Free T4 1.51 H (0.76-1.46) ng/dL Urine Color (Yellow) Urine Turbidity (Clear) Urine pH (5.0-7.0) Ur Specific Carney (1.003-1.030) Urine Protein (Negative) mg/dL Urine Glucose (UA) (Negative) mg/dL Urine Ketones (Negative) mg/dL Urine Blood (Negative) Urine Nitrite (Negative) Ur Reducing Substances Urine Bilirubin (Negative) Urine Ictotest Urine Urobilinogen (<2.0) mg/dL Ur Leukocyte Esterase (Negative) Urine WBC (Auto) (0.0-6.0) /HPF Urine RBC (Auto) (0.0-6.0) /HPF Urine Bacteria (Auto) (Negative) /HPF Urine Yeast (Budding) /HPF 11/05/21 11/05/21 11/05/21 Range/Units 18:50 19:44 23:11 WBC 3.9 L (4.5-11.0) K/mm3 RBC 5.07 H (3.65-5.03) M/mm3 Hgb 13.9 (11.8-15.2) gm/dl Hct 42.3 (35.5-45.6) % MCV 83 L (84-94) fl MCH 28 (28-32) pg MCHC 33 (32-34) % RDW 14.6 (13.2-15.2) % Plt Count 163 (140-440) K/mm3 Lymph % (Auto) Orthodontic Lab Technician Bradley % (Auto) Orthodontic Lab Technician Eos % (Auto) Orthodontic Lab Technician Baso % (Auto) Orthodontic Lab Technician Lymph # (Auto) Orthodontic Lab Technician Bradley # (Auto) Orthodontic Lab Technician Eos # (Auto) Orthodontic Lab Technician Baso # (Auto) Orthodontic Lab Technician Seg Neutrophils % Orthodontic Lab Technician Seg Neutrophils # Orthodontic Lab Technician PT 12.8 (12.2-14.9) Sec. INR 0.87 (0.87-1.13) APTT 24.8 (24.2-36.6) Sec. Sodium (137-145) mmol/L Carbon Dioxide (22-30) mmol/L BUN (9-20) mg/dL Creatinine (0.8-1.3) mg/dL Estimated GFR ml/min BUN/Creatinine Ratio % Glucose (75-100) mg/dL Calcium (8.4-10.2) mg/dL Total Bilirubin (0.1-1.2) mg/dL AST (5-40) units/L ALT (7-56) units/L Alkaline Phosphatase (35-129) units/L Ammonia (25-60) umol/L Total Creatine Kinase (55-170) units/L Total Protein (6.3-8.2) g/dL Albumin (3.9-5) g/dL Albumin/Globulin Ratio % TSH (0.270-4.200) mlU/mL Free T4 (0.76-1.46) ng/dL Urine Color Colorless (Yellow) Urine Turbidity Clear (Clear) Urine pH 7.0 (5.0-7.0) Ur Specific Carney 1.010 (1.003-1.030) Urine Protein 30 mg/dl (Negative) mg/dL Urine Glucose (UA) Negative (Negative) mg/dL Urine Ketones Negative (Negative) mg/dL Urine Blood Small A (Negative) Urine Nitrite Positive (Negative) Ur Reducing Substances Not Reportable Urine Bilirubin Negative (Negative) Urine Ictotest Not Reportable Urine Urobilinogen < 2.0 (<2.0) mg/dL Ur Leukocyte Esterase Small (Negative) Urine WBC (Auto) 10.0 H (0.0-6.0) /HPF Urine RBC (Auto) 2.0 (0.0-6.0) /HPF Urine Bacteria (Auto) 2+ (Negative) /HPF Urine Yeast (Budding) 1+ /HPF Potassium 4.1, chloride 101.9, anion gap 19 - EKG Data -: EKG Interpreted by Ms EKG shows normal: sinus rhythm, ST-T waves (No STEMI) Rate: normal (81) - Radiology Data Radiology results: report reviewed CT head/brain wo con INDICATION / CLINICAL INFORMATION: 76 years Male; fall off bed, confusion, dementia. TECHNIQUE: Routine CT head without contrast. All CT scans at this location are performed using CT dose reduction for ALARA by means of automated exposure control. COMPARISON: None. FINDINGS: BRAIN / INTRACRANIAL CONTENTS: There may be a very small meningioma along the inner table the left parietal bone, measuring 11-12 mm in maximum dimension. This finding should be of no clinical significance. Otherwise, no acute hemorrhage, mass effect, midline shift, hydrocephalus, or acute, large territorial infarct. Mild, diffuse cerebral atrophy. Mild degree of hippocampal atrophy suggested bilaterally. There are moderate, somewhat confluent areas of decreased attenuation in the white matter of the cerebral hemispheres, as well as the gangliocapsular regions. These are nonspecific findings and may be related to microangiopathy (hypertension, diabetes, atherosclerosis), given the patient's age. It might be difficult to evaluate for small areas of ischemia without diffusion imaging by MRI. Mild pontine disease cannot be excluded. CRANIOCERVICAL JUNCTION: No significant abnormality. ORBITS: No significant abnormality of visualized orbits. SINUSES / MASTOIDS: Mucous retention cysts/polyps seen in the left maxillary antrum. Mild mucosal thickening suggested in the mastoids. ADDITIONAL FINDINGS: Atherosclerotic disease is seen in the anterior and posterior circulation. IMPRESSION: 1. No focal intra-axial mass, hemorrhage, hydrocephalus, or acute, large territorial infarct. CT cervical spine wo con INDICATION / CLINICAL INFORMATION: 76 years Male; fall off bed, confusion, dementia. TECHNIQUE: Axial CT images of the cervical spine were obtained. Sagittal and coronal reformatted images were produced. All CT scans at this location are performed using CT dose reduction for ALARA by means of automated exposure control. COMPARISON: None available. FINDINGS: POST-SURGICAL CHANGES: None. ALIGNMENT: Straightening of the cervical spine noted, which may be related to patient positioning. VERTEBRAE: No signs of fracture. Vertebral bodies are grossly normal in height throughout. Multilevel foraminal narrowing seen bilaterally from uncinate and/or facet hypertrophy, virtually all levels. Mild to moderate, multilevel facet hypertrophy is seen. There are small articular surface erosions seen not only along many of the facet joints, but along the endplates of the disc spaces at multiple levels. Rheumatoid arthritis might be a consideration. INTRAVERTEBRAL DISCS: Multilevel disc space narrowing seen. Mild, multilevel disc disease noted. No dominant herniation or canal stenosis appreciated. PARASPINAL SOFT TISSUES: No significant abnormality. ADDITIONAL FINDINGS: Mild mucosal thickening in the mastoids. IMPRESSION: 1. No signs of acute bony trauma to the cervical spine. - Medical Decision Making 76-year-old male presents to the hospital after a low level ground fall out of bed. This was unwitnessed. Patient was found down by nurse who states that patient was initially unresponsive. Patient was responsive and cooperative throughout ED stay and with EMS. Patient does have underlying dementia. CT head, cervical spine, and labs unremarkable with exception of UA result positive for UTI after straight cath without signs of urinary retention. Patient had a urine soiled diaper prior to catheterization. Patient provided Macrobid and urine cultures pending Critical Care Time: No Critical care attestation.: If time is entered above; I have spent that time in minutes in the direct care of this critically ill patient, excluding procedure time. ED Disposition Clinical Impression: Fall, Dementia, UTI (urinary tract infection) Disposition: HOME / SELF CARE / HOMELESS Is pt being admited?: No Condition: Stable Instructions: Dementia, Urinary Tract Infection, Adult, [id number] Additional Instructions: Take the medication as prescribed. Follow-up with your doctor or doctor/clinic provided. Return if symptoms worsen as indicated by your discharge instructions. Prescriptions: Nitrofurantoin Bradley/M-Cryst [Macrobid CAP] 100 mg PO Q12HR #14 capsule Referrals: PRIMARY CARE, [Primary Care Provider] - 3-5 Days Time of Disposition: 00:03
[2021-11-05 19:35] LABS: INR 0.87 (0.87-1.13)
[2021-11-05 19:36] LABS: Partial Thromboplastin Time 24.8 Sec. (24.2-36.6)
[2021-11-05 19:51] LABS: Free T4 (Free Thyroxine) 1.51 ng/dL (0.76-1.46)
[2021-11-05 20:02] LABS: Alanine Aminotransferase 9 units/L (7-56); Albumin 3.9 g/dL (3.9-5); BUN/Creatinine Ratio 13; Blood Urea Nitrogen 15 mg/dL (9-20); Calcium 8.9 mg/dL (8.4-10.2); Hemolysis Index 18
[2021-11-05 20:16] LABS: Hematocrit 42.3 % (35.5-45.6); Hemoglobin 13.9 gm/dl (11.8-15.2); Mean Corpuscular HGB Conc 33 % (32-34); Mean Corpuscular Volume 83 fl (84-94); Platelet Count 163 K/mm3 (140-440); Red Blood Count 5.07 M/mm3 (3.65-5.03); Red Cell Distribution Width 14.6 % (13.2-15.2)
--- NOTE | 2021-11-05 20:50 | Cat Scan Report ---
CT head/brain wo con INDICATION / CLINICAL INFORMATION: 76 years Male; fall off bed, confusion, dementia. TECHNIQUE: Routine CT head without contrast. All CT scans at this location are performed using CT dos e reduction for ALARA by means of automated exposure control. COMPARISON: None. FINDINGS: BRAIN / INTRACRANIAL CONTENTS: There may be a very small meningioma along the inner table the left pa rietal bone, measuring 11-12 mm in maximum dimension. This finding should be of no clinical significa nce. Otherwise, no acute hemorrhage, mass effect, midline shift, hydrocephalus, or acute, large territori al infarct. Mild, diffuse cerebral atrophy. Mild degree of hippocampal atrophy suggested bilaterally. There are moderate, somewhat confluent areas of decreased attenuation in the white matter of the cere bral hemispheres, as well as the gangliocapsular regions. These are nonspecific findings and may be r elated to microangiopathy (hypertension, diabetes, atherosclerosis), given the patient's age. It migh t be difficult to evaluate for small areas of ischemia without diffusion imaging by MRI. Mild pontine disease cannot be excluded. CRANIOCERVICAL JUNCTION: No significant abnormality. ORBITS: No significant abnormality of visualized orbits. SINUSES / MASTOIDS: Mucous retention cysts/polyps seen in the left maxillary antrum. Mild mucosal thi ckening suggested in the mastoids. ADDITIONAL FINDINGS: Atherosclerotic disease is seen in the anterior and posterior circulation. IMPRESSION: 1. No focal intra-axial mass, hemorrhage, hydrocephalus, or acute, large territorial infarct. Signer Name: Param Ahumada MD, III Signed: 11/05/2021 8:45 PM Workstation Name: [email or web address]
--- NOTE | 2021-11-05 20:54 | Cat Scan Report ---
CT cervical spine wo con INDICATION / CLINICAL INFORMATION: 76 years Male; fall off bed, confusion, dementia. TECHNIQUE: Axial CT images of the cervical spine were obtained. Sagittal and coronal reformatted images were pr oduced. All CT scans at this location are performed using CT dose reduction for ALARA by means of aut omated exposure control. COMPARISON: None available. FINDINGS: POST-SURGICAL CHANGES: None. ALIGNMENT: Straightening of the cervical spine noted, which may be related to patient positioning. VERTEBRAE: No signs of fracture. Vertebral bodies are grossly normal in height throughout. Multilevel foraminal narrowing seen bilaterally from uncinate and/or facet hypertrophy, virtually all levels. Mild to moderate, multilevel facet hypertrophy is seen. There are small articular surface erosions se en not only along many of the facet joints, but along the endplates of the disc spaces at multiple le vels. Rheumatoid arthritis might be a consideration. INTRAVERTEBRAL DISCS: Multilevel disc space narrowing seen. Mild, multilevel disc disease noted. No d ominant herniation or canal stenosis appreciated. PARASPINAL SOFT TISSUES: No significant abnormality. ADDITIONAL FINDINGS: Mild mucosal thickening in the mastoids. IMPRESSION: 1. No signs of acute bony trauma to the cervical spine. Signer Name: Param Ahumada MD, III Signed: 11/05/2021 8:50 PM Workstation Name: [id number]
[2021-11-05 23:29] LABS: Bacteria,Urine 2+ /HPF (Negative)
[2021-11-05 23:48] LABS: Bilirubin,Urine Negative (Negative); Color,Urine Colorless (Yellow)
[2021-11-05 23:49] LABS: Blood,Urine Small (Negative); Urobilinogen,Urine < 2.0 mg/dL (<2.0)
[2021-11-05] MEDS ORDERED: NITROFURANTOIN MONOHYD/M-CRYST 100 MG CAP PO ONE (23:58)
[2021-11-06 00:45] VITALS: BP 154/78
--- NOTE | 2021-11-07 19:08 | Electrocardiograph Report ---
[facility] Test Date: 2021-11-05 Test Time: 19:20:39 Pat Name: SUE PATRICK Department: Room: Gender: M Submarine Operator: ALYSA : 1945 Requested By: SRAVANI ALEXIS Order Number: [id number] Reading MD: Raymundo Cash Measurements Intervals [place] Rate: 81 P: 53 TX: 262 QRS: 17 QRSD: 104 T: 28 QT: 384 QTc: 448 Interpretive Statements Sinus rhythm Prolonged [place] interval Probable left atrial enlargement NSTW'S No previous ECG available for comparison Electronically Signed On 11-07-2021 19:07:49 EDT by Raymundo Cash
== END 2021-11-06 01:51 | disposition home or self-care (01) ==
LOC: ED 17:52
DX: F03.90 Unspecified dementia, unspecified severity, without behavioral disturbance, psychotic disturbance, mood disturbance, and anxiety (principal); N39.0 Urinary tract infection, site not specified; E11.9 Type 2 diabetes mellitus without complications; I10 Essential (primary) hypertension; Z88.0 Allergy status to penicillin; W19.XXXA Unspecified fall, initial encounter; Y93.89 Activity, other specified; Y92.89 Other specified places as the place of occurrence of the external cause; Y99.8 Other external cause status
CPT/HCPCS: 36415; 70450; 72125; 80053; 81001; 82140; 82550; 84439; 84443; 85025; 85610; 85730; 87086; 93005; 99284; 99285